=== PATIENT | female | born 1955 | race Two or more races ===

== ENCOUNTER 2021-04-25 04:50 | Day surgery (SDC) | payer OTHER ==
[~2021-04-25 04:50] MED LIST: BAYER CHEWABLE81 MG PO; OMEPRAZ PO; SIMVASTA PO
== END 2021-04-25 12:45 | disposition home or self-care (01) ==
LOC: CIR.AMB 04:50
PROVIDERS: ATTEND Specialist
DX: K80.10 Calculus of gallbladder with chronic cholecystitis without obstruction (principal); Z20.822 Contact with and (suspected) exposure to COVID-19